=== PATIENT | female | born 1955 | race Caucasian/White ===

== ENCOUNTER 2021-08-18 00:12 | Emergency (ER) | payer MEDICAID ==
[~2021-08-18] VITALS: Ht 154.9 cm; Wt 55.0 kg
[2021-08-18] MEDS ORDERED: SODIUM CHLORIDE 0.9% 1,000 ML IV ONE (01:00)
[2021-08-18] MEDS ORDERED: ONDANSETRON HCL 4MG/2ML INJ IV ONE (01:00)
[2021-08-18] MEDS ORDERED: MORPHINE SULFATE 4 MG/ML CPJ (NOT FOR IM USE) IV ONE (01:00)
[2021-08-18 01:57] VITALS: BP 137/70
== END 2021-08-18 02:01 | disposition left against medical advice (07) ==
LOC: ER 00:12
DX: R19.7 Diarrhea, unspecified (principal); Z85.038 Personal history of other malignant neoplasm of large intestine
CPT/HCPCS: 71045; 74176; 76700; 93005; 99285; J7030; J2270; J2405